=== PATIENT | male | born 1965 | race Two or more races ===

== ENCOUNTER → 2025-05-11 | Emergency (ER) | payer OTHER ==
[~2025-05-11] VITALS: Ht 167.6 cm; Wt 100.2 kg
[~2025-05-11] MED LIST: SYNJARDY XR 251 EACH PO
== END | disposition left against medical advice (07) ==
LOC: ER 02:09
DX: Z53.21 Procedure and treatment not carried out due to patient leaving prior to being seen by health care provider (principal)